=== PATIENT | male | born 1940 | race Two or more races ===

== ENCOUNTER 2018-04-28 11:25 | Outpatient (CLI) | payer OTHER | END 2018-04-28 12:00 | disposition home or self-care (01) | LOC: NUCLEAR 11:25 | DX: I70.0 Atherosclerosis of aorta (principal); I10 Essential (primary) hypertension; E78.00 Pure hypercholesterolemia, unspecified; I20.8 Other forms of angina pectoris; J45.909 Unspecified asthma, uncomplicated | CPT/HCPCS: 78452; 93017; A9500; J1250 ==